=== PATIENT | female | born 1965 ===

== ENCOUNTER 2025-06-22 10:46 | Outpatient (AMB) | payer MEDICAID, SELFPAY ==
[2025-06-22 10:52] VITALS: BP 132/70; PULSE 62; RESP 16; O2SAT 98
--- NOTE | 2025-06-22 10:52 | MHC.OFFVIS ---
Vital Signs 06/22/25 10:52 Height 5 ft 2 in BP 132/70 Blood Pressure Location Rt brachial Position Sitting Respiration 16 Pulse 62 Pulse Oximetry (%) 98 Intake Visit Reasons: Dx: Vascular Dementia/ Prev Dr Coleman Pt 2021 Sourcing Associate Required: Yes Sourcing Associate Services: Sourcing Associate Present Sourcing Associate Name: Hansel ID [id number] Information Interpreted: non-clinical & clinical Physicist Astrophysics: Physicist Astrophysics Present Accompanied by: Spouse Allergies No Known Allergies Allergy (Verified 06/22/25 10:52) Medication List - Last Reconciled 06/22/25 by Sherron Thorpe, RAFAEL apixaban (Eliquis) 5 mg PO BID fluoxetine 10 mg PO QAM hydralazine 25 mg PO TID lisinopril 40 mg PO DAILY pantoprazole 40 mg PO DAILY HPI Comments Details: Vandana is a 60-year-old female patient with a past medical history of migraine, cerebral aneurysm clipping in 2008 in [facility], multiple left MCA area embolic appearing cerebral infarcts associated with a PFO noted by a ZEYAD in 2010, anticoagulated for stroke prophylaxis, and reported seizure in 2017. She is here today for a memory evaluation. She was previously followed by Dr. Coleman carrying a diagnosis of vascular dementia. Prior workup has included: EEG in office December of 2021: Within normal limits EEG in office 2019: Within normal limits MRA of the brain and neck at [facility] in 2018: Left ICA intracavernous stenosis MRI brain [facility] in 2019: Chronic left frontotemporal and parieto-occipital infarcts EEG in office July 2019: Within normal limits Vandana presents to the clinic today with her who notes that the reason for their visit today is due to a notable change in her memory. Over the course of the last couple of years, her notes that she has had worsening of her memory as well as some changes in her behavior that include some irritability and aggression that he describes as being very argumentative about day to day tasks. She is now starting to forget family members. Sister with history of aneurysm and surgican repair also with notable dementia. Her mother who is in her 80s recently started to devlop memory concerns. Memory evaluation: Onset of memory changes:>10 years but worse over the last year Rate of progression: Slow up until the last year when he noticed a rapid change Cognitive: Difficulty remembering upcoming events: Yes Getting lost:No Difficulty keeping track of time: Yes Difficulty finding appropriate words: Yes Difficulty making decisions or problem-solving:Yes Functional: Difficulty writing checks, paying bills:Yes, performs this Difficulty driving a car: Does not drive Difficulty shopping alone: Yes Difficulty performing household tasks:Yes Difficulty managing own medications: administers it for her Difficulty pursuing hobbies/leisure activities: No Change in gait: No Social activities: Difficulty holding conversation:Yes Decreased social activity with family/friends:Yes, she has been having trouble with recognizing family Less cooperative:Yes, very easily upset Less aware of others feeling/her full: Yes Less concerned about bathing/dressing/grooming: Yes, her has to bathe and groom her Behavioral: Sad, depressed: She reports that he feels depressed Anxious, worried:No Inpatient, fidgety: Yes Acts impulsively, disinhibited:Yes Change appetite or weight: Eating smaller portions and has been resistant to eating meals at times Change in sleep pattern, daytime fatigue:No problems sleeping. She does not snore regularly Hallucinations:Not that the patient or has noticed PFSH Medical History (Updated 06/22/25 @ 13:06 by Sherron Thorpe CNP) Vascular dementia Hypertension Right hemiparesis Seizure disorder Migraine Embolic cerebral infarction Multiple cerebral infarctions PFO (patent foramen ovale) Review of Systems Const Reports as per HPI Physical Exam Exam Exam: MOCA: MOCA total:0/30 Executive:0/5 Namin/3 Attention:0/6 Language:0/3 Abstraction:0/2 Delayed recall:0/5 Orientation:0/6 Difficulty following ins. Vital Signs: Last Vital Signs Pulse 62 06/22/25 10:52 Resp 16 06/22/25 10:52 BP 132/70 06/22/25 10:52 Pulse Ox 98 06/22/25 10:52 Const General: comfortable and no acute distress Nutritional Appearance: average body habitus Orientation/consciousness: No oriented to person, No oriented to place and No oriented to time Limitations: altered mental status HEENT Head: Yes normal to inspection Neuro General: No oriented to person, No oriented to place and No oriented to time Cranial nerves: Yes CN's II-XII intact bilaterally (Normal aside from EOM which was not assessed due to patient's limitations) Cognition (Neuro): abnormal cognition Speech: Receptive aphasia present Gait exam (Neuro): Normal gait present Motor exam (neuro): Other motor observations present (Mild right-sided weakness to both upper and lower extremity.) Deep tendon reflexes (DTR's): Right triceps reflex intensity grade: 2+, Left triceps reflex intensity grade: 2+, Rt Biceps (C5, C6): 2+, Left biceps reflex intensity grade: 2+, Right brachioradialis reflex intensity grade: 2+, Left brachioradialis reflex intensity grade: 2+, Right patellar reflex intensity grade: 1+, Left patellar reflex intensity grade: 1+, Right ankle reflex intensity grade: 1+ and Left ankle reflex intensity grade: 1+ Assessment & Plan Assessment & Plan (1) Memory impairment: Code(s): R41.3 - Other amnesia Category: Medical (2) Multiple cerebral infarctions: Code(s): I63.9 - Cerebral infarction, unspecified Category: Medical (3) Vascular dementia: Code(s): F01.50 - Vascular dementia, unspecified severity, without behavioral disturbance, psychotic disturbance, mood disturbance, and anxiety Category: Medical Plan Vandana is a 60-year-old female patient with a past medical history of migraine, cerebral aneurysm clipping in 2008 in [facility], 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 She is here today for a memory evaluation. Memory has significantly worsened over the course of the last year. 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 She also had a significant difficulty understanding simple questions. She has not had an MRI of the brain in quite a few years. I will repeat her scan to rule out any development of additional infarcts despite use of anticoagulation. Adversely, we should rule out any possibility for intracranial bleeding. She has not had a B12 or TSH level performed recently or available for review. I will obtain these should we need to move on to have a PET scan performed. -Repeat MRI of the brain with and without contrast and susceptibility imaging -Memory labs: B12, TSH, and pTAU and beta amyloid ratio -Labs for risk factor modification: A1c and lipid panel -Follow-up in approximately 6 weeks after MRI and labs are completed Orders: Orders Vitamin B12 Today R41.3 - Other amnesia TSH reflex Free T4 Today R41.3 - Other amnesia Hemoglobin A1c Today R41.3 - Other amnesia Syphilis Screen Today R41.3 - Other amnesia Lipid Panel Today R41.3 - Other amnesia MR head/brain wo/w con Today R41.3 - Other amnesia ABeta 42/40 p-tau 217 Eval Today R41.3 - Other amnesia Coding Level of Care Code New Pt Level 4 (18722) Diagnoses Memory impairment R41.3 Multiple cerebral infarctions I63.9 Vascular dementia F01.50
--- OUTSIDE RECORDS SUMMARY | 2025-06-22 14:04 | XMS_ITS ---
Author Name [facility] Organization Unknown Care Team Organization Name Specialty Phone Email Start Date End Da te [facility] 08/15/2022 05/26/20 24
--- OUTSIDE RECORDS SUMMARY | 2025-06-22 14:04 | XMS_ITS | Clinical Summary ---
Author Organization [facility] Address [address] [place] [address] Phone Care Team Providers Care Logistics Loss Prevention Manager Name Role Phone John Curry MD Primary Care Provider [phone] Allergies Active Allergy Reactions Criticality Noted Date Comments Amlodipine 08/20/2012 itching Oxycodone-Acetaminophen 09/28/2011 Itchy Medications apixaban (Eliquis) 5 mg tablet Take 1 tablet (5 mg total) by mouth 2 (two) times a day. 07/23/20 24 Active hydrALAZINE (APRESOLINE) 25 mg tablet Take 1 tablet (25 mg total) by mouth 3 (three) times a day. 90 each 01/29/20 25 Active atorvastatin (Lipitor) 10 mg tablet Take 4 tablets (40 mg total) by mouth 1 (one) time each day. 07/24/20 17 Active lisinopril (PRINIVIL,ZEST RIL) 40 mg tablet Take 1 tablet (40 mg total) by mouth 1 (one) time each day. 90 tablet 1 05/25/20 25 Active pantoprazole (PROTONIX) 40 mg EC tablet TAKE 1 TABLET BY MOUTH EVERY DAY 90 tablet 06/02/20 25 Active pantoprazole (PROTONIX) 40 mg EC tablet Take 1 tablet (40 mg total) by mouth 1 (one) time each day before breakfast. Do not crush, chew, or split. 30 each 5 02/19/20 25 025 Discontinued lisinopril (PRINIVIL,ZEST RIL) 40 mg tablet TAKE 1 TABLET BY MOUTH EVERY DAY 90 tablet 04/24/20 25 025 Discontinued(Re order) Active Problems Problem Noted Date Diagnosed Date Cognitive impairment 02/18/2025 Acute cystitis without hematuria 01/24/2025 LA (myocardial infarction) ([facility] V24, [facility] V28) 06/02/2024 CVA (cerebral vascular accident) ([facility] V24, [facility] V28) 06/02/2024 Matilde-Manley tear 08/17/2021 Lumbar radicular syndrome 01/08/2019 Acute ischemic left MCA stroke ([facility] V24, [facility] V28) 03/20/2017 Insomnia 08/07/2016 Smoker 05/09/2016 Obstructive sleep apnea 05/04/2015 Hemiparesis affecting nondom inant side as late effect of cerebrovascular accident ([facility] V24, [facility] V28) 09/16/2012 Herniated lumbar disc without myelopathy 012 History of cerebrovascular a ccident (CVA) with residual deficit 12/29/2011 Overview (08/26/2024): IMO update Anxiety 06/20/2011 Complicated migraine 06/20/2011 Seizure disorder ([facility] V24, [facility] V28) 06/08 PFO (patent foramen ovale) 06/20/2011 Cerebral aneurysm 06/20/2011 Overview (08/26/2024): Coil placement 2007 TIA (transient ischemic attack) 06/20/2011 Vision loss, left eye 06/20/2011 Vitamin D deficiency 06/20/2011 White coat syndrome with diagnosis of hypertensi on 06/20/2011 Encounters Date Type Department Care Team Description 05/25/2025 Telephone [facility] - [facility] [address] [facility] [place] [address] John Curry MD from Last 3 Months Immunizations Name Administration Dates Next Due Influenza Quadravalent, MDCK , 0.5ml, preservative free (Flucelvax) 6mo and older 06/28/2022 Influenza trivalent, 0.5mL, preservative free (Fluarix; FluLaval; Fluzone) ages 6mo and older (Afluria) 3 years and older 08/07/2016 Influenza, Unspecified 07/10/2023,07/19/2020 Pneumococcal conjugate 13 va lent (Prevnar 13, PCV13) 2mo and older 12/19/2019 Pneumococcal polysaccharide 23 valent (Pneumovax 23) 2yo and older 09/25/2014 Tdap Tetanus diptheria acell ular pertussis (Boostrix; Adacel) 7yo and older 06/28/2022,06/20/2011 Surgical History Surgery Date Site/Laterality Comments TOTAL KNEE ARTHROPLASTY PROCEDURE: [place] ARTHRP KNE CONDYLE&PLATU MEDIAL&LAT COMPARTMENTS; COMMENT: bilateral OTHER SURGICAL HISTORY PROCEDURE: [place] TOTAL ABDOMINAL HYSTERECT W/WO RMVL TUBE OVARY; COMMENT: endom,etriosis BREAST BIOPSY Right PROCEDURE: BX BREAST; PERC NEEDLE CORE W/IMAG GUID Medical History Medical History Date Comments PFO (patent foramen ovale) 06/20/2011 DX:PF O (patent foramen ovale) HTN (hypertension) 06/20/2011 DX:HTN (hyper tension) History of myocardial infarction 06/20/2011 DX:History of myocardial infarction Complicated migraine 06/20/2011 DX:Complica donta migraine Vitamin D deficiency 06/20/2011 DX:Vitamin D deficiency Vision loss, left eye 06/20/2011 DX:Vision loss, left eye Seizure disorder ([facility] V2 4, [facility] V28) 06/20/2011 DX:Seizure disorder (HCC) Anxiety 06/20/2011 DX:Anxiety TIA (transient ischemic attack) 06/20/2011 DX:TIA (transient ischemic attack) Cerebral aneurysm 06/20/2011 DX:Cerebral an eurysm; COMMENT: Coil placement 2008 Herniated lumbar disc withou t myelopathy 05/08/2012 DX:Herniated lumbar disc wit hout myelopathy Hemiparesis affecting nondom inant side as late effect of cerebrovascular accident (CMS/HCC V24, [facility] V28) 09/16/2012 DX:Hemiparesis affecting non dominant side as late effect of cerebrovascular accident (HCC) Family History Medical History Relation Name Comments Stroke Father Coronary artery disease Mother Hypertension Mother Migraines Mother Autoimmune disease Neg Hx Breast cancer Neg Hx Colon cancer Neg Hx Diabetes Neg Hx Heart attack Neg Hx Heart failure Neg Hx Hyperlipidemia Neg Hx Mental illness Neg Hx Prostate cancer Neg Hx Sleep apnea Neg Hx Thyroid disease Neg Hx Relation Name Status Comments Brother 1 Alive Brother 2 Alive Brother 3 Alive Brother 4 Alive Brother 5 Alive Brother 6 Alive Father Mother Alive Sister 1 Alive Sister 2 Alive Sister 3 Alive Sister 4 Alive Sister 5 Alive Social History Tobacco Use Types Packs/Day Years Used Date Smoking Tobacco: Former Smokeless Tobacco: Never Tobacco Cessation:Counseling Given: Not Answered Alcohol Use Standard Drinks/Week Comments No 0 (1 standard drink = 0.6 oz pur e alcohol) Comments Unknown Sex and Gender Information Value Date Recorded Sex Assigned at Not on file Legal Sex Female 5:40 AM EST Gender Identity Not on file Sexual Orientation Not on file Obstetrics History Last Filed Vital Signs Vital Sign Reading Time Taken Comments Blood Pressure 130/82 02/18/2025 3:20 PM EDT aut o Pulse 61 02/18/2025 3:20 PM EDT Temperature 35.9 C (96.6 F) 01/28/2025 3:58 AM EDT Respiratory Rate 16 01/28/2025 3:58 AM EDT Oxygen Saturation 100% 01/28/2025 9:46 AM EDT Inhaled Oxygen Concentration - - Weight 73.9 kg (162 lb 14.4 oz) 02/18/2025 3:20 PM EDT Height 157.5 cm (5' 2 ) 02/18/2025 3:20 PM EDT Body Mass Index 29.79 02/18/2025 3:20 PM EDT Plan of Treatment Upcoming Encounters Date Type Department Care Team (Late st Contact Info) Description 07/15/2025 2:45 PM EDT Office Visit Internal Medicine - [address] [phone] John Curry MD [address] [place] [id number] Health Maintenance Due Date Last Done Comments Hepatitis B Vaccines (1 of 3 - 19+ 3-dose series) 1985 Zoster Vaccines (1 of 2) 2016 HIV Screening 09/16/2022 Social Influencers of Health Screening 09/16/2022 Breast Cancer Screening 11/17/2023 11/17/19, 12/23/2018, 06/25/2018, Additional history exists Colorectal Cancer Screening: Colonoscopy 09/24/2024 09/24/2014 Depression Screening 10/08/2024 Pneumococcal Vaccine: 50+ Years (3 of 3 - PCV20 or PCV21) 12/18/2024 12/19/2019, 09/25/2014, 06/21/2010 COVID-19 Vaccine (3 - season) 2025 07/06/2021, 01/13/2021 Influenza Vaccine (#1) 2025 , 06/28/2022, 07/19/2020, Additional history exists Hypertension/CHF/CAD Annual BMP Blood Test 02/18/2026 02/18/2025, 01/28/2025, 01/27/2025, Additional history exists Cholesterol Screening (Lipid Panel) 02/18/2030 02/18/2025, 07/23/2024, 07/23/2024 DTaP,Tdap,and Td Vaccines (3 - Td or Tdap) 06/28/2032 06/28/2022, 06/20/2011 RSV Immunization Adult Patients (1 - 1-dose 75+ series) 2041 Hepatitis C Screening Completed 03/07/2018 HIB Vaccines Aged Out No longer eligi ble based on patient's age to complete this topic HPV Vaccines Aged Out No longer eligi ble based on patient's age to complete this topic Hepatitis A Vaccines Aged Out No long er eligible based on patient's age to complete this topic IPV Vaccines Aged Out No longer eligi ble based on patient's age to complete this topic MMR Vaccines Aged Out No longer eligi ble based on patient's age to complete this topic Meningococcal ACWY Vaccine Aged Out N o longer eligible based on patient's age to complete this topic Meningococcal B Vaccine Aged Out No l onger eligible based on patient's age to complete this topic RSV Immunization Patients Under 20 months Aged Out No longer eligible based on patient's age to complete this topic Varicella Vaccines Aged Out No longer eligible based on patient's age to complete this topic Procedures Procedure Name Priority Date/Time Associated Diagnosis Comments COMPREHENSIVE METABOLIC PANEL Routine 02/18/2025 3:53 PM EDT Screening for diabetes mellitus LIPID PANEL WITH REFLEX TO DIRECT LDL Routine 02/18/2025 3:53 PM EDT Screening for hyperlipidemia DIAGNOSTIC MAMMOGRAPHY INCLUDING CAD BILATERAL Routine 11/17/2021 2:17 PM EST Mastodynia HEPATITIS C SCREENING Routine 03/07/2018 COLONOSCOPY Routine 09/24/2014 from Last 3 Months or Most Recently Relevant to Health Maintenance Results * (ABNORMAL) Lipid panel with reflex to direct LDL (02/18/2025 3:53 PM EDT) Cholesterol 175 0 - 200 mg/dL LAB CHEMISTRY METHOD 02/18/2025 7:41 PM [facility] Triglycerides 169(H) 0 - 150 mg/dL LAB CHEMISTRY METHOD 02/18/2025 7:41 PM [facility] HDL 52 >=40 mg/dL LAB CHEMISTRY METHOD 02/18/2025 7:41 PM [facility] LDL Calculated 89 0 - 100 mg/dL LAB CHEMISTRY METHOD 02/18/2025 7:41 PM [facility] VLDL Cholesterol Carmine 33.8 mg/dL LAB CHEMISTRY METHOD 02/18/2025 7:41 PM [facility] Non HDL Chol. (LDL+VLDL) 123 <145 mg/dL LAB CHEMISTRY METHOD 02/18/2025 7:41 PM [facility] Chol/HDL Ratio 3.4 0.0 - 4.4 LAB CHEMISTRY METHOD 02/18/2025 7:41 PM [facility] Blood Venous blood specimen / Unknown Venipuncture / Unknown 02/18/2025 3:53 PM EDT 02/18/2025 3:53 PM EDT us John Curry MD LAB BLOOD ORDERABLES Final Res ult [facility] [address] [place] [address], [place] [phone] * Comprehensive metabolic panel (02/18/2025 3:53 PM EDT) Sodium 142 133 - 145 mmol/L LAB CHEMISTRY METHOD 02/18/2025 7:51 PM [facility] Potassium 4.5 3.5 - 5.5 mmol/L LAB CHEMISTRY METHOD 02/18/2025 7:51 PM [facility] Chloride 109 96 - 110 mmol/L LAB CHEMISTRY METHOD 02/18/2025 7:51 PM [facility] CO2 28 21 - 32 mmol/L LAB CHEMISTRY METHOD 02/18/2025 7:51 PM [facility] Anion Gap 5 3 - 11 LAB CHEMISTRY METHOD 02/18/2025 7:51 PM [facility] Glucose 82 70 - 100 mg/dL LAB CHEMISTRY METHOD 02/18/2025 7:51 PM [facility] BUN 13 5 - 25 mg/dL LAB CHEMISTRY METHOD 02/18/2025 7:51 PM [facility] Creatinine 0.81 0.50 - 1.10 mg/dL LAB CHEMISTRY METHOD 02/18/2025 7:51 PM [facility] eGFR 84 >=60 mL/min/1. 73m2 LAB CHEMISTRY METHOD 02/18/2025 7:51 PM [facility] Comment:Calculation based on the Chronic Kidney Disease Epidemiology Collaboration (CKD-EPI) equation refit without adjustment for race. BUN/Creatinine Ratio 16.0 LAB CHEMISTRY METHOD 02/18/2025 7:51 PM [facility] Calcium 8.8 8.5 - 10.5 mg/dL LAB CHEMISTRY METHOD 02/18/2025 7:51 PM EDT [facility] AST (SGOT) 19 10 - 42 unit/L LAB CHEMISTRY METHOD 02/18/2025 7:51 PM EDT [facility] ALT (SGPT) 22 10 - 60 unit/L LAB CHEMISTRY METHOD 02/18/2025 7:51 PM EDT [facility] Alkaline Phosphatase 89 42 - 121 unit/L LAB CHEMISTRY METHOD 02/18/2025 7:51 PM EDT [facility] Total Protein 6.9 6.0 - 8.0 g/dL LAB CHEMISTRY METHOD 02/18/2025 7:51 PM EDT [facility] Albumin 3.6 3.2 - 5.0 g/dL LAB CHEMISTRY METHOD 02/18/2025 7:51 PM T [facility] Total Bilirubin 0.3 0.0 - 1.4 mg/dL LAB CHEMISTRY METHOD 02/18/2025 7:51 PM EDT [facility] Blood Venous blood specimen / Unknown Venipuncture / Unknown 02/18/2025 3:53 PM EDT 02/18/2025 3:53 PM EDT us John Curry MD LAB BLOOD ORDERABLES Final Res ult [facility] [address] [place] [address], * DIAGNOSTIC MAMMOGRAPHY INCLUDING CAD BILATERAL (11/17/2021 2:17 PM EST) Anatomical Region Laterality Modality Mammography 10/28/2021 2:28 PM EST Narrative 11/17/2021 2:31 PM EST This is a summary report. The complete report is available in the patient's medical record. If you cannot access the medical record, please contact the sending organization for a detailed fax or copy. Bilateral diagnostic digital mammogram; Left Breast Ultrasound History: Left breast pain. Technique/Findings: Full-field digital 2D and 3D mammography, reviewed with CAD and compared to previous. The breast tissue is heterogeneously dense, limiting sensitivity. No suspicious mass, architectural distortion or suspicious calcifications are identified. Ultrasound evaluation of the retroareolar region of the left breast in the area of pain indicated by the patient was performed. Portions of all 4 quadrants were examined. Ultrasound evaluation of the painful area indicated by the patient and the outer left breast was also performed. There is no cyst or solid mass. IMPRESSION: : Dense breast tissue, limiting the sensitivity of mammography. No mammographic evidence of malignancy. Unremarkable left breast ultrasound. BIRADS 1-Negative; N. 5 year breast cancer risk assessment 0.6 % Lifetime breast cancer risk assessment 4.2 % Breast cancer risk category Low (<15%) Procedure Note Yanique Gregg MD - 09/26/2022 This is a summary report. The complete report is available in thepatient's medical record. If you cannot access the medical record, pleasecontact the sending organization for a detailed fax or copy. Bilateral diagnostic digital mammogram; Left Breast Ultrasound History: Left breast pain. Technique/Findings: Full-field digital 2D and 3D mammography, reviewedwith CAD and compared to previous. The breast tissue is heterogeneouslydense, limiting sensitivity. No suspicious mass, architectural distortionor suspicious calcifications are identified. Ultrasound evaluation of the retroareolar region of the left breast in thearea of pain indicated by the patient was performed. Portions of all 4quadrants were examined. Ultrasound evaluation of the painful areaindicated by the patient and the outer left breast was also performed.There is no cyst or solid mass. IMPRESSION: : Dense breast tissue, limiting the sensitivity of mammography. Nomammographic evidence of malignancy. Unremarkable left breastultrasound. BIRADS 1-Negative; N. 5 year breast cancer risk assessment 0.6 % Lifetime breast cancer risk assessment 4.2 % Breast cancer risk category Low (<15%) Saundra Hernandes DO IMG BI PROCEDURES Final Resul t * Hepatitis C Screening (03/07/2018) Pathologist [facility] Hepatitis C Screening abstracted Historical Provider HEALTH MAINTENANCE Final Result * Colonoscopy (09/24/2014) Pathologist [facility] Colonoscopy negative, abstracted Anatomical Region Laterality Modality Other us Historical Provider HEALTH MAINTENANCE Final Result from Last 3 Months or Most Recently Relevant to Health Maintenance Insurance [facility] [place] [address] Advance Directives Documents on File Type Date Recorded Patient Endoscopy Technician Expl anation Health Care Decision (hx) 04/01/2017 AD CERNA DIRECTIVE Health Care Decision (hx) 04/01/2017 AD CERNA DIRECTIVE Health Care Decision (hx) 04/01/2017 AD CERNA DIRECTIVE Health Care Decision (hx) 04/01/2017 AD CERNA DIRECTIVE Health Care Decision (hx) 04/01/2017 AD CERNA DIRECTIVE Health Care Decision (hx) 04/01/2017 AD CERNA DIRECTIVE Health Care Decision (hx) 04/01/2017 AD CERNA DIRECTIVE Health Care Decision (hx) 04/01/2017 AD CERNA DIRECTIVE Health Care Decision (hx) 04/01/2017 AD CERNA DIRECTIVE Health Care Decision (hx) 04/01/2017 AD CERNA DIRECTIVE Health Care Decision (hx) 04/01/2017 AD CERNA DIRECTIVE Health Care Decision (hx) 04/01/2017 AD CERNA DIRECTIVE Health Care Decision (hx) 04/01/2017 AD CERNA DIRECTIVE * Full Code - Default (Latest Code Status on File) Date Activated Date Inactivated Comments 01/24/2025 11:24 PM 01/28/2025 6:58 PM This is ord er is used when code status has not been discussed with the patient, or code status is otherwise unknown/unconfirmed To update the patient's code status, place a code status order. Do not modify or discontinue any currently active code status orders. Care Teams Logistics Loss Prevention Manager Relationship Specialty Start Date End Date John Curry MD [address] [place] [address] PCP - General 06/15/11
== END 2025-06-22 11:31 | disposition home or self-care (01) ==
PROVIDERS: PCP Internal Medicine; Visit Provider Nurse Practitioner
DX: R41.3 Other amnesia (principal); I63.9 Cerebral infarction, unspecified; F01.50 Vascular dementia, unspecified severity, without behavioral disturbance, psychotic disturbance, mood disturbance, and anxiety
CPT/HCPCS: 99204

== ENCOUNTER 2025-06-22 10:46 | Outpatient (REF) | payer OTHER, SELFPAY ==
[2025-06-22 12:23] LABS: Hemoglobin A1C 132.1872 umol/L; Total Hemoglobin (HGBA1C) 3691.8142 umol/L
[2025-06-22 12:55] LABS: Cholesterol 220 mg/dL (<200); HDL Cholesterol 59 mg/dL (>40); Triglycerides 123 mg/dL (<150)
[2025-06-22 13:03] LABS: Syphilis Screen Nonreactive (Nonreactive)
[2025-06-22 13:16] LABS: Vitamin B12 410 pg/mL (200-900)
[2025-06-30 12:03] LABS: ABETA 42/40 Ratio 0.243 (> OR = 0.170); Alzeheimer's Interpretation Low Likelihood; Alzeimer's Disease Score 0.0449; Tau protein phosphorylated 217 1.25 pg/mL (< OR = 0.15)
== END 2025-06-22 10:47 | disposition home or self-care (01) ==
LOC: HO.LAB 10:46
PROVIDERS: PCP Internal Medicine; Visit Provider Nurse Practitioner
DX: F01.50 Vascular dementia, unspecified severity, without behavioral disturbance, psychotic disturbance, mood disturbance, and anxiety (principal); R41.3 Other amnesia; I63.9 Cerebral infarction, unspecified; Z11.3 Encounter for screening for infections with a predominantly sexual mode of transmission; Z79.01 Long term (current) use of anticoagulants
CPT/HCPCS: 36415; 80061; 82233; 82234; 82607; 83036; 84393; 84443; 86780; 99202

== ENCOUNTER 2025-08-03 13:42 | Outpatient (AMB) | payer MEDICAID, SELFPAY ==
--- NOTE | 2025-08-03 13:50 | A.OFFVIS_ITS ---
Vital Signs 08/03/25 13:57 Height 5 ft 2 in BP 178/90 H Blood Pressure Location Rt brachial Position Sitting Respiration 16 Pulse 74 Pulse Source Pulse Oximeter Pulse Oximetry (%) 99 Oxygen Delivery Method Room Air Intake Visit Reasons: 6 weeks Activity Specialist Required: No Accompanied by: Spouse Allergies No Known Allergies Allergy (Verified 08/03/25 13:58) HPI Comments Details: Vandana is a 60-year-old female patient with a past medical history of migraine, cerebral aneurysm clipping in 2008 in [facility], 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 She is here today for a follow-up visit. I saw her about 6 weeks ago for a memory evaluation. She was previously followed by Dr. Coleman carrying a diagnosis of vascular dementia. Prior workup has included: EEG in office December of 2021: Within normal limits EEG in office 2019: Within normal limits MRA of the brain and neck at [facility] in 2018: Left ICA intracavernous stenosis MRI brain [facility] in 2018: Chronic left frontotemporal and parieto-occipital infarcts EEG in office July 2019: Within normal limits She presented with her at time of last visit and he had noticed a notable change in her memory over the course of the last couple of years worsening over the last few months including some irritability and aggression. She has been very argumentative and hesitant/nervous in social situations. She also had started to forget family members which was new. During her last visit I had recommended performing B12 and thyroid studies as well as repeating her MRI of the brain with susceptibility imaging to evaluate for cerebral amyloid angiopathy in the setting of anticoagulation. Since our last visit, she had B12 and TSH studies which were normal. Unfort unately, she did not have her MRI of the brain. We discussed possibility of a PET scan though I did perform amyloid doses labs which showed low likelihood. She would also not be a good candidate for any amyloid targeted medications moving forward due to the degree of her cognitive impairment. Her has been also mentions that her appetite has continued to decline. He has been giving her Ensure shakes twice a day though they are becoming very expensive. Memory evaluation: Onset of memory changes:>10 years but worse over the last year Rate of progression: Slow up until the last year when he noticed a rapid change Cognitive: Difficulty remembering upcoming events: Yes Getting lost:No Difficulty keeping track of time: Yes Difficulty finding appropriate words: Yes Difficulty making decisions or problem-solving:Yes Functional: Difficulty writing checks, paying bills:Yes, performs this Difficulty driving a car: Does not drive Difficulty shopping alone: Yes Difficulty performing household tasks:Yes Difficulty managing own medications: administers it for her Difficulty pursuing hobbies/leisure activities: No Change in gait: No Social activities: Difficulty holding conversation:Yes Decreased social activity with family/friends:Yes, she has been having trouble with recognizing family Less cooperative:Yes, very easily upset Less aware of others feeling/her full: Yes Less concerned about bathing/dressing/grooming: Yes, her has to bathe and groom her Behavioral: Sad, depressed: She reports that he feels depressed Anxious, worried:No Inpatient, fidgety: Yes Acts impulsively, disinhibited:Yes Change appetite or weight: Eating smaller portions and has been resistant to eating meals at times Change in sleep pattern, daytime fatigue:No problems sleeping. She does not snore regularly Hallucinations:Not that the patient or has noticed PFSH Medical History (Updated 06/22/25 @ 13:06 by Sherron Thorpe CNP) Vascular dementia Hypertension Right hemiparesis Seizure disorder Migraine Embolic cerebral infarction Multiple cerebral infarctions PFO (patent foramen ovale) Physical Exam Vital Signs: Last Vital Signs Pulse 74 08/03/25 13:57 Resp 16 08/03/25 13:57 BP 178/90 H 08/03/25 13:57 Pulse Ox 99 08/03/25 13:57 Oxygen Delivery Method Room Air 08/03/25 13:57 Assessment & Plan Assessment & Plan (1) Vascular dementia: Code(s): F01.50 - Vascular dementia, unspecified severity, without behavioral disturbance, psychotic disturbance, mood disturbance, and anxiety Category: Medical (2) Memory impairment: Code(s): R41.3 - Other amnesia Category: Medical (3) Multiple cerebral infarctions: Code(s): I63.9 - Cerebral infarction, unspecified Category: Medical Plan Vandana is a 60-year-old female patient with a past medical history of migraine, cerebral aneurysm clipping in 2008 in [facility], 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 Her TSH and B12 levels are normal and I did suggest a repeat MRI of the brain to evaluate for any further vascular impairments or cerebral amyloid angiopathy in the setting of anticoagulation. Her amyloid interpretation showed low likelihood. PET scans would not likely change the course of treatment provided that she is not a good candidate for amyloid altering medications given the severity of her cognitive impairment and use of anticoagulation. Moving forward, we should focus on supportive measures. I will order memantine and increase her fluoxetine for cognitive and mood support. Functionally she does well with the assistance of her . She however has had a decrease in her appetite and therefore her has been has been giving her ensure though the costs are high with this. I will attempt to send a prescription for this. -MRI of the brain with and without contrast and with the susceptibility imaging -increase fluoxetine from 10 mg to 20 mg daily -start memantine 5 mg twice daily -could consider low-dose Seroquel if increase in fluoxetine is not beneficial -send Rx for ensure supplements -follow up after MRI Medications: New food supplemt, lactose-reduced (Ensure Original oral liquid) Drink one 237ml bottle twice daily 1 ea PO BID 14,220 mL 5RF memantine (Namenda) 5 mg PO BID 60 tabs 5RF 30 days Changed From fluoxetine 20 mg PO QAM To fluoxetine 20 mg (2 x 10 mg) PO QAM 60 caps 5RF 30 days Coding Level of Care Code Est Pt Level 4 (66744) Diagnoses Vascular dementia F01.50 Memory impairment R41.3 Multiple cerebral infarctions I63.9
[2025-08-03 13:57] VITALS: BP 178/90; PULSE 74; RESP 16; O2SAT 99
--- OUTSIDE RECORDS SUMMARY | 2025-08-03 17:22 | XMS_ITS | Encounter Summary ---
Author Organization [employer] [place] [address] Care Team Providers Care Pst Specialist Name Role Phone John Curry MD Primary Care Provider [phone] Encounter Details Date Type Department Care Team (Late st Contact Info) Description 07/21/2025 Results Follow-Up Internal Medicine - [address] [phone] Austin Pacheco NP [address] [place] [id number] Social History Tobacco Use Types Packs/Day Years Used Date Smoking Tobacco: Former Smokeless Tobacco: Never Alcohol Use Standard Drinks/Week Comments No 0 (1 standard drink = 0.6 oz pur e alcohol) Comments Unknown Sex and Gender Information Value Date Recorded Sex Assigned at Not on file Legal Sex Female 5:40 AM EST Gender Identity Not on file Sexual Orientation Not on file documented as of this encounter Plan of Treatment Not on file documented as of this encounter Visit Diagnoses Not on filedocumented in this encounter Care Teams Pst Specialist Relationship Specialty Start Date End Date John Curry MD [address] [place] [id number] PCP - General 06/15/11 documented as of this encounter
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
== END 2025-08-03 14:34 | disposition home or self-care (01) ==
LOC: HO.HSM 13:43
PROVIDERS: PCP Internal Medicine; Visit Provider Nurse Practitioner
DX: F01.50 Vascular dementia, unspecified severity, without behavioral disturbance, psychotic disturbance, mood disturbance, and anxiety (principal); R41.3 Other amnesia; I63.9 Cerebral infarction, unspecified
CPT/HCPCS: 99214

== ENCOUNTER → 2025-08-03 13:42 | Outpatient (BNVA) | payer OTHER, SELFPAY | PROVIDERS: PCP Internal Medicine; Visit Provider Nurse Practitioner | DX: F01.50 Vascular dementia, unspecified severity, without behavioral disturbance, psychotic disturbance, mood disturbance, and anxiety (principal); R41.3 Other amnesia; I63.9 Cerebral infarction, unspecified | CPT/HCPCS: 99212 ==